=== PATIENT | male | born 1940 | race Caucasian/White ===

== ENCOUNTER 2020-07-05 08:21 | Emergency (ER) | payer OTHER ==
[2020-07-05] MEDS ORDERED: Acetaminophen/Codeine 30-300mg Tablet ONE (11:11)
[2020-07-05] MEDS ORDERED: Cyclobenzaprine 10 MG TAB ONE (11:12)
[2020-07-05] MEDS ORDERED: Ketorolac Tromethamine 30 MG/ML VIAL ONE (11:12)
== END 2020-07-05 12:11 | disposition home or self-care (01) ==
LOC: ERS 08:21
DX: S76.011A Strain of muscle, fascia and tendon of right hip, initial encounter (principal); I10 Essential (primary) hypertension; E03.9 Hypothyroidism, unspecified; K21.9 Gastro-esophageal reflux disease without esophagitis; X50.1XXA Overexertion from prolonged static or awkward postures, initial encounter
CPT/HCPCS: 96372; J1885